=== PATIENT | male | born 1985 | race Caucasian/White ===

== ENCOUNTER 2018-10-15 14:08 | Emergency (ER) | payer SELFPAY ==
[~2018-10-15] VITALS: Ht 177.8 cm; Wt 70.8 kg
--- NOTE | 2018-10-15 14:34 | NUR ---
ED Nurse Note: [facility]. According to EMS, pt was found unconscious and was given 2 doses of narcan and that is when he awoke. Pt presented in the ER agitated when he saw [employer]. Pt is A+ O x4. Ambulatory. Skin warm to touch. Pt has a hx of HTN, depression, anxiety.
[2018-10-15 14:36] VITALS: BP 103/81
[2018-10-15 14:48] LABS: EOSINOPHILS % (AUTO) 2.6 % (0.0-3.0); HEMATOCRIT 47.1 % (42.0-52.0); HEMOGLOBIN 15.8 G/DL (14.2-18.0); LYMPHOCYTES % (AUTO) 16.7 % (20.0-45.0); MEAN CORPUSCULAR VOLUME 90 FL (80-99); NEUTROPHILS % (AUTO) 74.9 % (45.0-75.0); PLATELET COUNT 187 K/UL (150-450); RED BLOOD COUNT 5.21 M/UL (4.70-6.10); RED CELL DISTRIBUTION WIDTH 11.5 % (11.6-14.8); WHITE BLOOD COUNT 6.1 K/UL (4.8-10.8)
[2018-10-15 14:58] LABS: ANION GAP 11 mmol/L (5-15); BLOOD UREA NITROGEN 14 mg/dL (7-18); CALCIUM 8.8 MG/DL (8.5-10.1); CARBON DIOXIDE 28 MMOL/L (21-32); CHLORIDE 104 MMOL/L (98-107); CREATININE 1.3 MG/DL (0.55-1.30); POTASSIUM 3.8 MMOL/L (3.5-5.1); SODIUM 143 MMOL/L (136-145)
--- NOTE | 2018-10-15 15:00 | NUR ---
ED Nurse Note: Pt is being aggressive/agitated toward staffs, stated " I do not want the security staffs to be here, I just want water and medical to be in here. I just want to close the door"
--- NOTE | 2018-10-15 15:08 | NUR ---
ED Nurse Note: received report from RN Migdalia, pt currently demontrates combative and aggressive behavior towards medical staff, security called. attempted calming down pt by providing needs, unable to do at this time due to pt's behavior and pt refusing.
[2018-10-15] MEDS ORDERED: NARCAN4 MG NS (15:48)
--- NOTE | 2018-10-15 15:53 | NUR ---
ED Nurse Note: pt cleared to be d/c per ERMD, pt discharge and aftercare instruction provided w/ prescription, pt education done via discussion and handout, pt refused to sign discharge paperwork, pt continue to demonstrate combative behavior, pt was escorted out with security.
[2018-10-15 15:54] VITALS: BP 103/81
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
--- NOTE | 2018-10-16 15:57 | Cardiology Report ---
APPROVED REPORT EKG Measurement Heart [id number] Normal sinus rhythm Prolonged QT Abnormal ECG
== END 2018-10-15 15:55 | disposition home or self-care (01) ==
LOC: EDBD 14:08 → EMR 14:21
DX: T50.901A Poisoning by unspecified drugs, medicaments and biological substances, accidental (unintentional), initial encounter (principal); R45.1 Restlessness and agitation; I10 Essential (primary) hypertension; F32.9 Major depressive disorder, single episode, unspecified; F41.9 Anxiety disorder, unspecified; X58.XXXA Exposure to other specified factors, initial encounter; Y92.9 Unspecified place or not applicable
CPT/HCPCS: 36415; 80048; 85025; 93005; 99283

== ENCOUNTER 2018-12-10 11:02 | Emergency (ER) | payer SELFPAY ==
[~2018-12-10] VITALS: Ht 177.8 cm; Wt 77.1 kg
[~2018-12-10 11:02] MED LIST: NARCAN4 MG NS
[2018-12-10 11:10] VITALS: BP 111/61
[2018-12-10] MEDS ORDERED: LEXAPRO5 MG ORAL (11:10)
[2018-12-10] MEDS ORDERED: TRAZODONE HCL150 MG ORAL (11:10)
[2018-12-10] MEDS ORDERED: BACLOFEN5 MG PO (11:10)
[2018-12-10] MEDS ORDERED: BUSPAR10 MG ORAL (11:10)
[2018-12-10] MEDS ORDERED: TENORMIN100 MG ORAL (11:10)
[2018-12-10] MEDS ORDERED: NEURONTIN300 MG ORAL (11:10)
--- NOTE | 2018-12-10 11:10 | NUR ---
ED Nurse Note: pt walked in to ED due to generalized weakness since yesterday night. per pt, feeling dizzy. pt ambulatory with gait. VSS. AAO x4. respirations even and non-labored noted. pt refused to provide urine sample. RN notified Dr. Estrada. urine test cancelled. will wait for the further order.
[2018-12-10 11:40] VITALS: BP 118/70
--- NOTE | 2018-12-10 11:40 | NUR ---
ER DISCHARGE NOTE: Patient is cleared to be discharged per ERMD, pt is aox4, on room air, with stable vital signs. pt was given dc instructions, pt was able to verbalize understanding, pt id band removed. pt is able to ambulate with steady gait. pt took all belongings.
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
== END 2018-12-10 11:55 | disposition home or self-care (01) ==
LOC: EMR 11:50
DX: F19.10 Other psychoactive substance abuse, uncomplicated (principal); I10 Essential (primary) hypertension
CPT/HCPCS: 82962; 99282

== ENCOUNTER 2019-02-19 23:06 | Emergency (ER) | payer BC ==
[~2019-02-19] VITALS: Ht 167.6 cm; Wt 81.6 kg
[2019-02-19 23:06] VITALS: BP 146/99
[~2019-02-19 23:06] MED LIST changes: +BACLOFEN5 MG PO; +BUSPAR10 MG ORAL; +LEXAPRO5 MG ORAL; +NEURONTIN300 MG ORAL; +TENORMIN100 MG ORAL; +TRAZODONE HCL150 MG ORAL
--- NOTE | 2019-02-19 23:06 | NUR ---
ED Nurse Note: 2302: Stter requested.
--- NOTE | 2019-02-19 23:06 | NUR ---
ED Nurse Note: PT BIBA [employer] C/C SUBSTANCE ABUSE UNK AND SI PER [employer]. PT COMBATIVE AND UNCOOPERATIVE; PD AT BEDSIDE. AO4. DECREASED ENVIRONMENTAL STIMULI, OBSERVED ENVIRONMENTAL SAFETY PRECAUTIONS. BELONGINGS PLACED IN LOCKER #3.
[2019-02-19] MEDS ORDERED: DiphenhydrAMINE 50mg/ml Inj IM ONE (23:15)
[2019-02-19] MEDS ORDERED: Haloperidol 5mg/ml Inj IM ONE (23:15)
--- NOTE | 2019-02-19 23:42 | Emergency Room Report ---
History of Present Illness General Chief Complaint: Behavioral Complaint Source: Patient, Medical Record Present Illness HPI Is a 33-year-old male with a history of drug abuse. He is in sober living. He presented as a 5150 for suicidal thoughts. He was kicked out of sober living for suspected drug use. He claimed that they injected drug into his system. He texted his friends about being suicidal does not want to live anymore. He texted his mom saying she should write his eulogy. Police was called. Patient was agitated not cooperative. Denies any drug use. Denies any suicidal thoughts. Said that he was set up. Allergies: Coded Allergies: No Known Allergies (Unverified , 10/15/18) Patient History Past Medical History: see triage record, old chart reviewed Past Surgical History: none Family History: none Social History: other Immunizations: other Reviewed Nursing Documentation: PMH: Agreed; PSxH: Agreed Nursing Documentation-PMH Hx Hypertension: Yes Review of Systems ENT: Denies: sore throat Cardiovascular: Denies: chest pain, palpitations Gastrointestinal/Abdominal: Denies: nausea, vomiting, diarrhea Musculoskeletal: Denies: back problems Skin: Denies: rash Psychiatric: Reports: prior hx, suicidal/homicidal ideations Neurological: Denies: HOLT, seizures All Other Systems: negative except mentioned in HPI Physical Exam Vital Signs Date Time Temp Pulse Resp B/P (MAP) Pulse Ox O2 Delivery O2 Flow Rate FiO2 02/19/19 23:02 99.0 18 99 Room Air Vitals with tachycardia Sp02 EP Interpretation: reviewed, normal General Appearance: alert/responsive, no apparent distress, non-toxic, other - Agitated not cooperative Head: normocephalic, atraumatic Eyes: PERRL, EOMI ENT: oropharynx normal Neck: supple/symm/no masses Respiratory: effort normal, no rhonchi, no wheezing Cardiovascular: no murmur, gallop, rub Gastrointestinal: non-tender, no mass, non-distended, no rebound/guarding, normal bowel sounds Musculoskeletal: gait & station normal Neurologic: oriented x3, sensory intact, motor strength/tone normal Skin: no rash, normal palpation Medical Decision Making Diagnostic Impression: Primary Impression: Psychosis Qualified Codes: F23 - Brief psychotic disorder Additional Impressions: Polysubstance abuse Suicidal behavior Qualified Codes: R46.89 - Other symptoms and signs involving appearance and behavior ER Course Patient presents with acute psychosis and suicidal thoughts. Worsened by drugs. No evidence of bleed or CVA. Patient is medically clear for psychiatric placement. He is currently on 5150 hold by police. Last Vital Signs Date Time Temp Pulse Resp B/P (MAP) Pulse Ox O2 Delivery O2 Flow Rate FiO2 02/19/19 23:02 99.0 18 99 Room Air Status: improved Disposition: XFER TO PSYCH HOSP/UNIT Condition: Stable Referrals: NOT CHOSEN IPA/,REFERRING (PCP) Andrew Ayala MD Feb 19, 2019 23:41
--- NOTE | 2019-02-20 00:02 | NUR ---
ED Nurse Note: PATIENT AWAKE ALERT AND ORIENTED. COMBATIVE AND RESISTIVE TO CARE. OFFERED NOURISHMENT; PATIENT REFUSED.
[2019-02-20 00:37] LABS: BASOPHILS % (AUTO) 0.5 % (0.0-2.0); EOSINOPHILS % (AUTO) 0.4 % (0.0-3.0); HEMOGLOBIN 13.8 G/DL (14.2-18.0); LYMPHOCYTES % (AUTO) 7.1 % (20.0-45.0); MEAN CORPUSCULAR VOLUME 89 FL (80-99); MONOCYTES % (AUTO) 7.7 % (1.0-10.0); NEUTROPHILS % (AUTO) 84.3 % (45.0-75.0); PLATELET COUNT 281 K/UL (150-450); RED BLOOD COUNT 4.62 M/UL (4.70-6.10); RED CELL DISTRIBUTION WIDTH 12.6 % (11.6-14.8); WHITE BLOOD COUNT 12.4 K/UL (4.8-10.8)
[2019-02-20 00:48] LABS: ANION GAP 16 mmol/L (5-15); BLOOD UREA NITROGEN 15 mg/dL (7-18); CALCIUM 9.6 MG/DL (8.5-10.1); CARBON DIOXIDE 23 MMOL/L (21-32); CHLORIDE 104 MMOL/L (98-107); CREATININE 1.5 MG/DL (0.55-1.30); POTASSIUM 3.2 MMOL/L (3.5-5.1); SODIUM 143 MMOL/L (136-145)
[2019-02-20 00:52] LABS: ALANINE AMINOTRANSFERASE 40 U/L (12-78); ALBUMIN 4.1 G/DL (3.4-5.0); ALKALINE PHOSPHATASE 108 U/L (46-116); ASPARTATE AMINO TRANSFERASE 48 U/L (15-37); BILIRUBIN,TOTAL 0.4 MG/DL (0.2-1.0)
--- NOTE | 2019-02-20 01:02 | NUR ---
ED Nurse Note: PATIENT SLEEPING IN BED WITH NAD. VSS. RESPIRATIONS EVEN AND UNLABORED.
[2019-02-20 01:34] VITALS: BP 136/78
--- NOTE | 2019-02-20 01:46 | NUR ---
ED Nurse Note: REPEAT POTASSIUM DRAW; SENT DOWN TO LAB.
--- NOTE | 2019-02-20 02:47 | NUR ---
ED Nurse Note: Received report and Pt from ALEX Levy. Jorge Luis Pt is on hold 5150 due to SI, sitter is on bedside. Pt's belongings place in utility room.
--- NOTE | 2019-02-20 02:47 | NUR ---
ED Nurse Note: REPORT GIVEN TO ALEX HOLDEN. PATIENT MOVED TO ORTHO. PATIENT SLEEPING WITH NAD. RESPIRATIONS EVEN AND UNLABORED. ENDORSED 5150 AND LOCATION OF BELONGINGS WITH RECEIVING RN.
[2019-02-20 04:02] VITALS: BP 133/69
--- NOTE | 2019-02-20 04:03 | NUR ---
ED Nurse Note: Pt asleep when visited, VSS, provide blanket.
[2019-02-20] MEDS ORDERED: DiphenhydrAMINE 50mg/ml Inj IM ONE (06:30)
[2019-02-20] MEDS ORDERED: Haloperidol 5mg/ml Inj IM ONE (06:30)
[2019-02-20] MEDS ORDERED: LORazepam Inj 2mg/ml 1ml IM ONE (06:30)
[2019-02-20 06:52] VITALS: BP 128/72
--- NOTE | 2019-02-20 06:53 | NUR ---
ED Nurse Note: Pt asked his phone and wants to talk to his friend then leave the ER. Inform Pt he is current on hold 5150, can't leave without psy eval done. Pt became angry and complain with the policy. Inform Pt will provide meal soon and assist Pt back to room.
--- NOTE | 2019-02-20 07:00 | NUR ---
dr ashley has been notified to evaluate the patient
--- NOTE | 2019-02-20 07:11 | NUR ---
ED Nurse Note: Report given to Nav JOHNSON.
--- NOTE | 2019-02-20 07:15 | NUR ---
sitter at bedside patient is awake alert had breakfast ate good . no complaints at this karen denies being suicidal
--- NOTE | 2019-02-20 07:16 | NUR ---
ED Nurse Note: received pt from ALEX Abbasi. Pt is sleeping in [facility]. NAD noted. Informed by ALEX Abbasi that pt is aggressive towards female staffs. Waiting for psych eval or psych placement. Will continue to monitor.
--- NOTE | 2019-02-20 08:56 | NUR ---
ED Nurse Note: pt spoke with his mom on the phone. pt is now in room, breakfast provided to pt. NAD noted.
--- NOTE | 2019-02-20 09:00 | NUR ---
patients mother stevan and spoke to patient
--- NOTE | 2019-02-20 09:15 | NUR ---
patients mother called back states she wants to speak to the psychiatrist tl#[phone]. anuja castillo
--- NOTE | 2019-02-20 10:23 | NUR ---
ED Nurse Note: Pt remains asleep. NAD noted. Breathing normal/unlabored. skin warm/dry/intact.
[2019-02-20 12:00] VITALS: BP 120/80
--- NOTE | 2019-02-20 12:55 | NUR ---
ED Nurse Note: Dr. Osborn at bedside. Per Dr. Osborn, get address and more information of the place that pt states that he can go after being discharge from ED. Pt is not cleared by Dr. Osborn yet. Pt refused to provide the address and aggressive towards the staff. Security at bedside.
--- NOTE | 2019-02-20 13:00 | NUR ---
called anuja assistant case manager to come and evaluate patient . since he refuse to give information about his insurance status
--- NOTE | 2019-02-20 14:02 | NUR ---
security at bedside watching the patient
--- NOTE | 2019-02-20 14:17 | NUR ---
spoke to karen at [facility] no bed butwill place him in waiting list. clinicals faxed to the same
--- NOTE | 2019-02-20 14:32 | NUR ---
ED Nurse Note: Isauro Camara, RN, she spoke with pt's mother on the phone. Elieser Baugh, mother, . Pt is resting in [facility] noted.
--- NOTE | 2019-02-20 14:35 | NUR ---
ED Nurse Note: PT REFUSED TO PROVIDE ANY INFORMATION TO MOTHER AT THIS TIME. QUOC SENA AWARE.
--- NOTE | 2019-02-20 14:44 | NUR ---
called kamran instructed to fax the clinicals will keep in waiting list
--- NOTE | 2019-02-20 14:51 | NUR ---
[facility] will not take the patient who has out of state insurance
--- NOTE | 2019-02-20 15:00 | NUR ---
ED Nurse Note: PT REFUSED TO TAKE VITALS AT THIS TIME.
--- NOTE | 2019-02-20 15:42 | NUR ---
ED Nurse Note: staff from [facility] called back that they might be able to take the patient. Notified QUOC Kilgroe. Pt ambulated to restroom with security. NAD noted.
--- NOTE | 2019-02-20 17:00 | NUR ---
[facility] no bed avilable . will call anything comes up
--- NOTE | 2019-02-20 17:55 | NUR ---
[facility] no bed now will keep in waiting list
--- NOTE | 2019-02-20 18:00 | NUR ---
clinicals faxed to [facility]
[2019-02-20 18:07] VITALS: BP 123/72
--- NOTE | 2019-02-20 19:09 | NUR ---
HAND-OFF: Report given to ALEX Marley. NAD noted. dinner provided to pt
--- NOTE | 2019-02-20 19:30 | NUR ---
ED Nurse Note: Patient request lights to be dimmed, request accomodated, will continue to monitor.
--- NOTE | 2019-02-20 20:36 | NUR ---
ED Nurse Note: Patient sleeping, no s/s of acute distress. Will continue to monitor.
--- NOTE | 2019-02-20 21:37 | NUR ---
ED Nurse Note: Patient resting comfortably no s.s of acute distress. Will continue to monitor.
--- NOTE | 2019-02-20 23:45 | NUR ---
ED Nurse Note: Called and gave report to Che JOHNSON.
--- NOTE | 2019-02-21 00:10 | NUR ---
ED Nurse Note: Patient cleared for transport to facility. Patient unccoperative until security assist. Patient departed with transport with all of belongings.
[2019-02-21] MEDS ORDERED: Haloperidol 5mg/ml Inj IM ONE (00:15)
[2019-02-21] MEDS ORDERED: DiphenhydrAMINE 50mg/ml Inj IM ONE (00:15)
[2019-02-21 00:21] VITALS: BP 123/72
--- NOTE | 2019-02-21 16:45 | Consultation ---
DATE OF CONSULTATION: 02/21/2019 HISTORY OF PRESENT ILLNESS: The patient is a 33-year-old male with a history of substance use disorder and possibly bipolar disorder who has been admitted to the emergency room at [facility] on a 5150. The patient reported that he had suicidal thoughts and wanted to ; therefore, he was placed on 5150. During the evaluation, the patient was labile, agitated, threatening. He persisted that he wanted to be discharged. At some point during the evaluation, the patient became tangential and was illogical. I had a conversation with his mother who stated that the patient should be transferred to psychiatry unit that he has a history of suicide attempt in the past. The patient was resistant to go to a psychiatric unit and was disruptive on the unit. PAST PSYCHIATRY HISTORY: He denies any psychiatric illness. He later on gives the list of his medication to the charge nurse. PAST MEDICAL HISTORY: None significant. ALLERGIES: The patient denies any allergies. SUBSTANCE ABUSE HISTORY: Significant for meth, alcohol, cannabis. He has tried other illicit drug use . He has been in rehab and apparently at a sober living. He is relapsing his over behaving and was transferred to the hospital. MENTAL STATUS EXAMINATION: The patient is alert and oriented self, place, and date. He has poor insight into his situation that he is in. Mood is agitated and angry. Affect is blunted and congruent with mood. Thought process is tangential. Thought content, he denies any suicidal or homicidal ideation however he is very agitated and anxious and delusional. Insight and judgment is poor. ASSESSMENT: [place] I Polysubstance dependence. Rule out bipolar disorder. [place] II Deferred. [place] III None significant. [place] IV Moderate. [place] V 20 PLAN: 1. We will continue 5150 hold. 2. Transfer the patient out to a psychiatry facility. 3. Discussed the case with the ER doctor. Karuna Osborn M.D. DR: Navi JOB#: [id number] CC:
== END 2019-02-21 00:10 ==
LOC: EDBD 23:06 → EMR 23:20
DX: F23 Brief psychotic disorder (principal); R45.851 Suicidal ideations; I10 Essential (primary) hypertension
CPT/HCPCS: 36415; 80053; 80307; 84132; 85025; 96372; 99285; G0480; J1200; J1630; 80329